=== PATIENT | male | born 1955 | race African-American/Black ===

== ENCOUNTER 2020-10-29 15:47 | Inpatient (IN) | payer BC ==
[~2020-10-29] VITALS: Ht 172.7 cm; Wt 95.7 kg
[2020-10-29] MEDS ORDERED: SODIUM CHLORIDE 0.9% 1,000 ML IV ONE (16:30)
[2020-10-29 17:14] LABS: BASOPHILS % 0.8 % (0.0-2.0); EOSINOPHILS % 0.1 % (0.0-5.0); HEMATOCRIT. 36.1 % (42.0-52.0); HEMOGLOBIN. 12.1 g/dL (14.0-18.0); LYMPHOCYTES % 10.2 % (20.0-50.0); MEAN CORPUSCULAR HEMOGLOBIN 31.7 pg (28.0-32.0); MEAN CORPUSCULAR VOLUME 94.6 fL (80.0-94.0); MEAN PLATELET VOLUME 9.6 fl (7.4-10.4); MONOCYTES % 5.2 % (2.0-8.0); NEUTROPHILS % 83.7 % (40.0-76.0); PLATELET 124 x1000/uL (130-400); RED BLOOD CELL COUNT 3.82 mill/uL (4.7-6.1); RED CELL DISTRIBUTION WIDTH 13.9 % (11.6-14.6)
[2020-10-29 17:21] LABS: CHLORIDE 119 mEq/L (98-107)
[2020-10-29 17:26] LABS: ETHANOL BLOOD < 10 mg/dL
[2020-10-29] MEDS ORDERED: POTASSIUM CHLORIDE 20MEQ TABLET SR PO ONE (19:00)
[2020-10-29] MEDS ORDERED: PANTOPRAZOLE SODIUM 40 MG/VIAL IV ONE (19:45)
[2020-10-29 22:45] VITALS: BP 143/99
[2020-10-29 23:00] VITALS: BP 143/99
[2020-10-30] VITALS: BP 128/83
[2020-10-30] MEDS ORDERED: CLONIDINE 0.1MG TABLET PO PRN
[2020-10-30 00:54] LABS: BASOPHILS % 0.5 % (0.0-2.0); EOSINOPHILS % 0.6 % (0.0-5.0); HEMATOCRIT. 31.5 % (42.0-52.0); HEMOGLOBIN. 10.5 g/dL (14.0-18.0); LYMPHOCYTES % 23.7 % (20.0-50.0); MEAN CORPUSCULAR HEMOGLOBIN 31.3 pg (28.0-32.0); MEAN CORPUSCULAR VOLUME 93.4 fL (80.0-94.0); MEAN PLATELET VOLUME 8.7 fl (7.4-10.4); MONOCYTES % 7.2 % (2.0-8.0); PLATELET 131 x1000/uL (130-400); RED BLOOD CELL COUNT 3.37 mill/uL (4.7-6.1); RED CELL DISTRIBUTION WIDTH 13.6 % (11.6-14.6)
[2020-10-30 00:56] LABS: CHLORIDE 113 mEq/L (98-107)
[2020-10-30] MEDS ORDERED: DEXT 5%/0.45% NACL KCL 20MEQ/L 1,000 ML IV ONE (01:00)
[2020-10-30] MEDS: PANTOPRAZOLE SODIUM 40 MG/VIAL IV SCH (01:17)
[2020-10-30 01:45] LABS: CLARITY URINE CLEAR (CLEAR); COLOR URINE YELLOW (YELLOW); KETONES URINE 1+ (NEGATIVE); LEUKOCYTE ESTERASE URINE NEGATIVE (NEGATIVE); NITRITE URINE NEGATIVE (NEGATIVE); OCCULT BLOOD URINE NEGATIVE (NEGATIVE); PROTEIN URINE NEGATIVE (NEGATIVE); SPECIFIC GRAVITY URINE 1.029 (1.005-1.030); UROBILINOGEN URINE 0.2 E.U./dL (0.2-1.0)
[2020-10-30 02:08] LABS: *AMPHETAMINES SCREEN URINE NEGATIVE (NEGATIVE); *BARBITURATES SCREEN URINE NEGATIVE (NEGATIVE); *BENZODIAZEPINES SCREEN URINE NEGATIVE (NEGATIVE); *COCAINE SCREEN URINE PRESUMTIVE POSITIVE (NEGATIVE); METHADONE URINE SCREEN NEGATIVE (NEGATIVE); OPIATES URINE SCREEN NEGATIVE (NEGATIVE)
[2020-10-30 02:09] LABS: CANNABINOID URINE SCREEN PRESUMTIVE POSITIVE (NEGATIVE); PHENCYCLIDINE URINE SCREEN NEGATIVE (NEGATIVE)
[2020-10-30 04:00] VITALS: BP 132/87
[2020-10-30 12:00] VITALS: BP_SYST 130; BP_SYST 142; BP_SYST 145; BP_DIAS 101; BP_DIAS 88; BP_DIAS 99
[2020-10-30 13:47] LABS: TOTAL IRON BINDING CAPACITY 317 ug/dL (250-450)
[2020-10-30 13:55] LABS: FERRITIN 52 ng/mL (22-322)
[2020-10-30] MEDS ORDERED: ACETAMINOPHEN 650MG SUPP PR PRN (14:30)
[2020-10-30] MEDS ORDERED: DIPHENHYDRAMINE 50MG/ML VIAL IV PRN (14:30)
[2020-10-30] MEDS ORDERED: ACETAMINOPHEN 325MG TABLET PO PRN (14:30)
[2020-10-30] MEDS ORDERED: HYDROCODONE/ACETAMINOPHEN 5/325MG TABLET PO PRN (14:30)
[2020-10-30] MEDS ORDERED: BISACODYL 10MG SUPP PR PRN (14:30)
[2020-10-30] MEDS ORDERED: ONDANSETRON HCL 4MG/2ML INJ IV PRN (14:30)
[2020-10-30] MEDS ORDERED: IPRATROPIUM/ALBUTEROL 0.5-3(2.5)MG/3ML NEB HHN PRN (14:30)
[2020-10-30 14:36] LABS: VITAMIN B12 SERUM 481 pg/mL (211-911)
[2020-10-30 16:00] VITALS: BP 120/74
[2020-10-30] MEDS ORDERED: LORAZEPAM 2MG/ML CPJ IV PRN (17:45)
[2020-10-30] MEDS ORDERED: DOCUSATE SODIUM 100MG CAPSULE PO PRN (17:45)
[2020-10-30 17:53] LABS: HEMATOCRIT 29.5 % (42.0-52.0); HEMOGLOBIN 9.8 g/dL (14.0-18.0)
[2020-10-30 18:13] LABS: CREATINE KINASE 124 IU/L (39-308)
[2020-10-30] MEDS: THIAMINE HCL 100MG TABLET PO SCH (18:28)
[2020-10-30] MEDS: FOLIC ACID 1MG TABLET PO SCH (18:28)
[2020-10-30] MEDS: MULTIVITAMINS,THER W-MINERALS TABLET PO SCH (18:30)
[2020-10-30 18:34] LABS: HEPATITIS B SURFACE ANTIGEN NEGATIVE
[2020-10-30 18:44] LABS: INR 1.1; PROTHROMBIN TIME 11.4 sec (9.6-11.0)
[2020-10-30 19:03] LABS: HEPATITIS A AB IGM NEGATIVE (NEGATIVE)
[2020-10-30 19:22] LABS: HEMOGLOBIN 11.1 g/dL (14.0-18.0)
[2020-10-30 20:00] VITALS: BP_SYST 128; BP_SYST 131; BP_SYST 132; BP_DIAS 78; BP_DIAS 80; BP_DIAS 83
[2020-10-31] VITALS: BP 116/75
[2020-10-31 04:00] VITALS: BP 136/82
[2020-10-31 07:22] LABS: CHLORIDE 111 mEq/L (98-107)
[2020-10-31 07:31] LABS: BASOPHILS % 1.2 % (0.0-2.0); EOSINOPHILS % 2.4 % (0.0-5.0); HEMATOCRIT. 27.1 % (42.0-52.0); HEMOGLOBIN. 9.1 g/dL (14.0-18.0); LYMPHOCYTES % 30.6 % (20.0-50.0); MEAN CORPUSCULAR HEMOGLOBIN 31.4 pg (28.0-32.0); MEAN CORPUSCULAR VOLUME 93.6 fL (80.0-94.0); MEAN PLATELET VOLUME 10.2 fl (7.4-10.4); MONOCYTES % 9.4 % (2.0-8.0); NEUTROPHILS % 56.4 % (40.0-76.0); PLATELET 105 x1000/uL (130-400); RED BLOOD CELL COUNT 2.89 mill/uL (4.7-6.1); RED CELL DISTRIBUTION WIDTH 13.5 % (11.6-14.6)
[2020-10-31 08:00] VITALS: BP 151/96
[2020-10-31] MEDS: FOLIC ACID 1MG TABLET PO SCH (08:43)
[2020-10-31] MEDS: THIAMINE HCL 100MG TABLET PO SCH (08:43)
[2020-10-31] MEDS: PANTOPRAZOLE SODIUM 40 MG/VIAL IV SCH (08:44)
[2020-10-31] MEDS: MULTIVITAMINS,THER W-MINERALS TABLET PO SCH (08:53)
[2020-10-31 12:00] VITALS: BP 141/102
[2020-10-31 14:55] LABS: FOLIC ACID (FOLATE) SERUM 12.5 ng/mL (>5.38)
[2020-10-31 15:28] LABS: HEMATOCRIT 29.3 % (42.0-52.0); HEMOGLOBIN 9.7 g/dL (14.0-18.0)
[2020-10-31 16:00] VITALS: BP 132/86
[2020-10-31] MEDS: DEXT 5%/0.45% NACL 1000ML 1,000 ML IV SCH (17:48)
[2020-10-31 20:00] VITALS: BP 132/89
[2020-11-01] VITALS (8 sets, daily range): BP systolic 124–148; BP diastolic 79–101
[2020-11-01] MEDS: DEXT 5%/0.45% NACL 1000ML 1,000 ML IV SCH ×2 (06:10→20:56)
[2020-11-01 06:38] LABS: BASOPHILS % 0.9 % (0.0-2.0); HEMATOCRIT. 23.3 % (42.0-52.0); LYMPHOCYTES % 31.8 % (20.0-50.0); MEAN CORPUSCULAR VOLUME 93.7 fL (80.0-94.0); MEAN PLATELET VOLUME 9.3 fl (7.4-10.4); MONOCYTES % 8.2 % (2.0-8.0); NEUTROPHILS % 56.1 % (40.0-76.0); PLATELET 104 x1000/uL (130-400); RED BLOOD CELL COUNT 2.49 mill/uL (4.7-6.1); RED CELL DISTRIBUTION WIDTH 13.1 % (11.6-14.6)
[2020-11-01 06:46] LABS: CHLORIDE 109 mEq/L (98-107)
[2020-11-01] MEDS: FOLIC ACID 1MG TABLET PO SCH (08:31)
[2020-11-01] MEDS: THIAMINE HCL 100MG TABLET PO SCH (08:31)
[2020-11-01] MEDS: MULTIVITAMINS,THER W-MINERALS TABLET PO SCH (08:33)
[2020-11-01] MEDS ORDERED: IOHEXOL-300 100 ML BOTTLE ONE (09:31)
[2020-11-01] MEDS: PANTOPRAZOLE SODIUM 40 MG/VIAL IV SCH (09:55)
[2020-11-01 16:00] LABS: HEMATOCRIT 25.8 % (42.0-52.0); HEMOGLOBIN 8.6 g/dL (14.0-18.0)
[2020-11-02] VITALS: BP 142/86
[2020-11-02 04:00] VITALS: BP 139/94
[2020-11-02 06:34] LABS: EOSINOPHILS % 2.9 % (0.0-5.0); HEMATOCRIT. 24.9 % (42.0-52.0); HEMOGLOBIN. 8.4 g/dL (14.0-18.0); LYMPHOCYTES % 24.9 % (20.0-50.0); MEAN CORPUSCULAR HEMOGLOBIN 31.9 pg (28.0-32.0); MEAN CORPUSCULAR VOLUME 94.4 fL (80.0-94.0); MEAN PLATELET VOLUME 9.5 fl (7.4-10.4); MONOCYTES % 7.7 % (2.0-8.0); NEUTROPHILS % 63.5 % (40.0-76.0); PLATELET 125 x1000/uL (130-400); RED BLOOD CELL COUNT 2.64 mill/uL (4.7-6.1); RED CELL DISTRIBUTION WIDTH 13.5 % (11.6-14.6)
[2020-11-02 06:38] LABS: PROTHROMBIN TIME 10.5 sec (9.6-11.0)
[2020-11-02 06:39] LABS: CHLORIDE 110 mEq/L (98-107)
[2020-11-02 08:00] VITALS: BP 147/102
[2020-11-02] MEDS: THIAMINE HCL 100MG TABLET PO SCH (09:00)
[2020-11-02] MEDS: MULTIVITAMINS,THER W-MINERALS TABLET PO SCH (09:00)
[2020-11-02] MEDS: FOLIC ACID 1MG TABLET PO SCH (09:00)
[2020-11-02] MEDS: PANTOPRAZOLE SODIUM 40 MG/VIAL IV SCH (09:09)
[2020-11-02] MEDS: DEXT 5%/0.45% NACL 1000ML 1,000 ML IV SCH ×2 (09:09→21:52)
[2020-11-02 12:00] VITALS: BP_SYST 136; BP_SYST 146; BP_SYST 147; BP_DIAS 100; BP_DIAS 107; BP_DIAS 99
[2020-11-02] MEDS ORDERED: PROPOFOL 200MG/20ML VIAL IV ONE ×2 (14:48→15:00)
[2020-11-02] MEDS ORDERED: ONDANSETRON HCL 4MG/2ML INJ IV PRN (15:15)
[2020-11-02] MEDS ORDERED: HYDROMORPHONE HCL/PF 2MG/ML CPJ IV PRN (15:15)
[2020-11-02] MEDS ORDERED: MEPERIDINE HCL/PF 25MG/ML CPJ IV PRN (15:15)
[2020-11-02] MEDS ORDERED: LABETALOL 5MG/ML SYR 20 MG/4 ML SYRINGE IV PRN (15:15)
[2020-11-02 16:00] VITALS: BP 140/94
[2020-11-02 20:00] VITALS: BP 144/86
[2020-11-02] MEDS ORDERED: SORBITOL 70% SOLN 30ML PO NR (21:00)
[2020-11-03] VITALS (7 sets, daily range): BP systolic 117–142; BP diastolic 77–96
[2020-11-03 05:49] LABS: CHLORIDE 109 mEq/L (98-107)
[2020-11-03 05:58] LABS: BASOPHILS % 0.9 % (0.0-2.0); EOSINOPHILS % 2.2 % (0.0-5.0); HEMATOCRIT. 23.2 % (42.0-52.0); HEMOGLOBIN. 7.7 g/dL (14.0-18.0); LYMPHOCYTES % 22.9 % (20.0-50.0); MEAN CORPUSCULAR HEMOGLOBIN 31.8 pg (28.0-32.0); MEAN CORPUSCULAR VOLUME 95.6 fL (80.0-94.0); MEAN PLATELET VOLUME 9.4 fl (7.4-10.4); MONOCYTES % 9.2 % (2.0-8.0); NEUTROPHILS % 64.8 % (40.0-76.0); PLATELET 123 x1000/uL (130-400); RED BLOOD CELL COUNT 2.42 mill/uL (4.7-6.1); RED CELL DISTRIBUTION WIDTH 13.8 % (11.6-14.6)
[2020-11-03] MEDS ORDERED: SORBITOL 70% SOLN 30ML PO NR (06:00)
[2020-11-03] MEDS: PANTOPRAZOLE SODIUM 40 MG/VIAL IV SCH (08:28)
[2020-11-03] MEDS: THIAMINE HCL 100MG TABLET PO SCH (08:29)
[2020-11-03] MEDS: FOLIC ACID 1MG TABLET PO SCH (08:29)
[2020-11-03] MEDS: MULTIVITAMINS,THER W-MINERALS TABLET PO SCH (08:30)
[2020-11-03] MEDS ORDERED: NA PHOS,M-B/NA PHOS,DI-BA ENEMA 118ML PR NR (11:00)
[2020-11-03] MEDS: DEXT 5%/0.45% NACL 1000ML 1,000 ML IV SCH (13:27)
[2020-11-03] MEDS ORDERED: POTASSIUM CHLORIDE INJ 40 MEQ in DEXT 5% WATER 250 ML IV NR (13:45)
[2020-11-03] MEDS ORDERED: PROT40 MT (15:28)
[2020-11-03] MEDS ORDERED: FENTANYL CITRATE/PF 50MCG/ML 2ML VIAL ONE (16:27)
[2020-11-03] MEDS ORDERED: MIDAZOLAM HCL 2 MG/2 ML VIAL ONE (16:27)
[2020-11-03] MEDS ORDERED: DEXAMETHASONE 4MG/ML 1ML VIAL ONE (16:27)
[2020-11-03] MEDS ORDERED: ONDANSETRON HCL 4MG/2ML INJ ONE (16:27)
[2020-11-03] MEDS ORDERED: PROPOFOL 200MG/20ML VIAL IV ONE (16:30)
[2020-11-03] MEDS ORDERED: MEPERIDINE HCL/PF 25MG/ML CPJ IV PRN (17:00)
[2020-11-03] MEDS ORDERED: ONDANSETRON HCL 4MG/2ML INJ IV PRN (17:00)
[2020-11-03] MEDS ORDERED: LABETALOL 5MG/ML SYR 20 MG/4 ML SYRINGE IV PRN (17:00)
[2020-11-03] MEDS ORDERED: HYDROMORPHONE HCL/PF 2MG/ML CPJ IV PRN (17:00)
[2020-11-03 19:46] LABS: HEMATOCRIT 26.7 % (42.0-52.0); HEMOGLOBIN 9.1 g/dL (14.0-18.0)
[2020-11-04 00:15] VITALS: BP 134/86
[2020-11-04] MEDS: DEXT 5%/0.45% NACL 1000ML 1,000 ML IV SCH (01:54)
[2020-11-04 04:00] VITALS: BP 121/72
[2020-11-04 06:03] LABS: CHLORIDE 108 mEq/L (98-107)
[2020-11-04 06:31] LABS: BASOPHILS % 1.1 % (0.0-2.0); EOSINOPHILS % 3.1 % (0.0-5.0); HEMATOCRIT. 22.8 % (42.0-52.0); HEMOGLOBIN. 7.6 g/dL (14.0-18.0); LYMPHOCYTES % 22.8 % (20.0-50.0); MEAN CORPUSCULAR HEMOGLOBIN 31.3 pg (28.0-32.0); MEAN CORPUSCULAR VOLUME 94.1 fL (80.0-94.0); MEAN PLATELET VOLUME 9.1 fl (7.4-10.4); MONOCYTES % 8.5 % (2.0-8.0); NEUTROPHILS % 64.5 % (40.0-76.0); PLATELET 137 x1000/uL (130-400); RED BLOOD CELL COUNT 2.42 mill/uL (4.7-6.1)
[2020-11-04 08:00] VITALS: BP 134/77
[2020-11-04] MEDS: THIAMINE HCL 100MG TABLET PO SCH (09:18)
[2020-11-04] MEDS: MULTIVITAMINS,THER W-MINERALS TABLET PO SCH (09:18)
[2020-11-04] MEDS: FOLIC ACID 1MG TABLET PO SCH (09:18)
[2020-11-04] MEDS: PANTOPRAZOLE SODIUM 40 MG/VIAL IV SCH (09:18)
[2020-11-04 13:59] VITALS: BP 124/82
== END 2020-11-04 15:00 | disposition home or self-care (01) | DRG 73 ==
LOC: ER 15:47 → 6WST 19:42 → EDBEDREQ 19:45 → EDBEDREQTM 19:45 → ENRESERV 20:25
PROVIDERS: ADMIT Internal Medicine; ATTEND Internal Medicine
PROC: 0DB78ZX Excision of Stomach, Pylorus, Via Natural or Artificial Opening Endoscopic, Diagnostic (ICD-10-PCS; principal; 2020-11-02)
PROC: 0DJD8ZZ Inspection of Lower Intestinal Tract, Via Natural or Artificial Opening Endoscopic (ICD-10-PCS; 2020-11-03)
DX: G90.9 Disorder of the autonomic nervous system, unspecified (principal); K29.71 Gastritis, unspecified, with bleeding; K57.31 Diverticulosis of large intestine without perforation or abscess with bleeding; N17.9 Acute kidney failure, unspecified; E44.0 Moderate protein-calorie malnutrition; E87.0 Hyperosmolality and hypernatremia; C64.9 Malignant neoplasm of unspecified kidney, except renal pelvis; E86.0 Dehydration; E87.6 Hypokalemia; D53.9 Nutritional anemia, unspecified; E83.51 Hypocalcemia; K44.9 Diaphragmatic hernia without obstruction or gangrene; D50.0 Iron deficiency anemia secondary to blood loss (chronic); K40.20 Bilateral inguinal hernia, without obstruction or gangrene, not specified as recurrent; F12.90 Cannabis use, unspecified, uncomplicated; Z20.822 Contact with and (suspected) exposure to COVID-19; I10 Essential (primary) hypertension; K64.8 Other hemorrhoids; F14.10 Cocaine abuse, uncomplicated; Z68.32 Body mass index [BMI] 32.0-32.9, adult
CPT/HCPCS: 36415; 71045; 74176; 74177; 76770; 80048; 80053; 80305; 80320; 81003; 82270; 82550; 82553; 82607; 82728; 82746; 82962; 83540; 83550; 83880; 84484; 85014; 85018; 85025; 85044; 86705; 86709; 86803; 86850; 86900; 86920; 87340; 87426; 88305; 88313; 93005; 93306; 93880; 93970; 97161; 99291; C9113; J1100; J2250; J2405; J2704; J3010; J3480; J7030; J7060; Q9967; G0480